=== PATIENT | female | born 1945 | race Caucasian/White ===

== ENCOUNTER 2023-04-03 08:19 | Inpatient (IN) ==
[2023-04-03] MEDS ORDERED: Ondansetron 4 mg VIAL 2 MG/ML 2 ml VIAL IV ONE ×2 (09:36→14:19)
[2023-04-03] MEDS ORDERED: Lactated Ringers 1000 ml BAG 1,000 ML IV ONE (09:36)
[2023-04-03] MEDS ORDERED: Morphine 4 MG/ML VIAL (1 ml) IV ONE ×2 (09:37→14:07)
[2023-04-03 11:29] LABS: ABS Eosinophils 0.1 10^3/uL (0.0-0.5); ABS Lymphocytes 0.9 10^3/uL (1.0-4.8); ABS Monocytes 0.5 10^3/uL (0.0-0.9); ABS Neutrophils 5.5 10^3/uL (1.5-7.6); ABS Nucleated RBC 0.01 10^3/ul; Eosinophil % 1.4 %; Hemoglobin 11.5 g/dL (11.5-14.3); Lymphocyte % 12.3 %; Mean Corpuscular Hemoglobin 29.8 pg (27-33); Mean Corpuscular Hgb Conc 33.8 g/dL (31-36); Mean Corpuscular Volume 88.2 fL (80-97); Mean Platelet Volume 7.6 fL (7.5-11.2); Nucleated Red Blood Cells % 0.1 /100 WBC (0.0-0.4); Platelet Count 177 10^3/uL (150-450); Red Blood Count 3.85 10^6/uL (3.63-4.92); Red Cell Distribution Width 15.3 % (12-17)
[2023-04-03 11:47] LABS: Albumin 4.2 g/dL (3.2-5.2); C Reactive Protein 17.5 mg/L (<8.01); Calcium 9.3 mg/dL (8.6-10.3); Creatinine, Serum 0.72 mg/dL (0.51-0.95); Globulin 4.4 g/dL (2-4); Potassium 4.4 mmol/L (3.5-5.0); Total Bilirubin 1.1 mg/dL (0.2-1.0); Total Protein 8.6 g/dL (6.4-8.9); eGFR CKD-EPI 86.6 (>60)
[2023-04-03] MEDS ORDERED: Iohexol 350 (CONTRAST) 500 ML MDV IV ONE (12:13)
[2023-04-03 12:53] LABS: Urine Appearance Clear; Urine Bilirubin Negative (Negative); Urine Blood Negative (Negative); Urine Color Yellow; Urine Glucose Negative (Negative); Urine Ketones Trace (Negative); Urine Nitrite Negative (Negative); Urine Protein Negative (Negative); Urine Urobilinogen Negative (Negative)
[2023-04-03] MEDS ORDERED: Ondansetron 4 mg VIAL 2 MG/ML 2 ml VIAL IV PRN (15:53)
[2023-04-03] MEDS ORDERED: hydrALAZINE 20 mg/ml 1 ML Vial IV IV SLOW PU PRN (15:55)
[2023-04-03] MEDS ORDERED: Lactated Ringers 1000 ml BAG 1,000 ML IV SCH (16:00)
[2023-04-03] MEDS ORDERED: cefTRIAXone 1 gm/50 mL D5W 1 GM/50 ML BAG IV ONE (16:02)
[2023-04-03] MEDS ORDERED: metroNIDAZOLE IV 500 MG/100ML 500 MG/100 ML BAG IVPB ONE (16:02)
[2023-04-03] MEDS: Morphine 2 MG/ML SYRINGE IV PRN ×2 (18:33→23:09)
[2023-04-03] MEDS: NS 0.9% 1000 ml BAG 1,000 ML IV SCH (20:41)
[2023-04-03] MEDS ORDERED: Acetaminophen IV 1 GM/100ML 1,000 MG/100 ML BAG IV PRN (21:34)
[2023-04-04] MEDS: Morphine 2 MG/ML SYRINGE IV PRN (01:58)
[2023-04-04] MEDS ORDERED: Lorazepam PYXIS KEY PRN (02:28)
[2023-04-04] MEDS ORDERED: LORazepam 2 mg VIAL 1 ml IV PUSH ONE (02:29)
[2023-04-04 05:36] LABS: ABS Lymphocytes 1.1 10^3/uL (1.0-4.8); ABS Neutrophils 8.4 10^3/uL (1.5-7.6); ABS Nucleated RBC 0.01 10^3/ul; Eosinophil % 0.1 %; Hematocrit 32.7 % (35-45); Mean Corpuscular Hemoglobin 29.8 pg (27-33); Mean Corpuscular Hgb Conc 33.7 g/dL (31-36); Mean Corpuscular Volume 88.6 fL (80-97); Mean Platelet Volume 7.7 fL (7.5-11.2); Nucleated Red Blood Cells % 0.1 /100 WBC (0.0-0.4); Platelet Count 154 10^3/uL (150-450); Red Blood Count 3.69 10^6/uL (3.63-4.92); Red Cell Distribution Width 15.1 % (12-17); White Blood Count 10.5 10^3/uL (3.8-11.8)
[2023-04-04 05:55] LABS: Albumin 3.3 g/dL (3.2-5.2); Albumin/Globulin Ratio 0.8 (1-3); C Reactive Protein 53.49 mg/L (<8.01); Calcium 8.4 mg/dL (8.6-10.3); Creatinine, Serum 0.76 mg/dL (0.51-0.95); Magnesium 1.6 mg/dL (1.9-2.7); Potassium 3.9 mmol/L (3.5-5.0); Total Bilirubin 0.9 mg/dL (0.2-1.0); Total Protein 7.3 g/dL (6.4-8.9); eGFR CKD-EPI 81.2 (>60)
[2023-04-04] MEDS: NS 0.9% 1000 ml BAG 1,000 ML IV SCH ×2 (07:55→18:11)
[2023-04-04] MEDS ORDERED: Magnesium Sulfate IV 3 GM in NS 0.9% 100 ml BAG 100 ML IVPB ONE (18:00)
[2023-04-04] MEDS: Carbidopa/Levodop 25/100 MG TAB PO SCH (20:10)
[2023-04-04] MEDS ORDERED: cefTRIAXone 1 gm/50 mL D5W 1 GM/50 ML BAG IV SCH (21:00)
[2023-04-05] MEDS: Morphine 2 MG/ML SYRINGE IV PRN (03:06)
[2023-04-05 06:01] LABS: ABS Eosinophils 0.2 10^3/uL (0.0-0.5); ABS Monocytes 0.6 10^3/uL (0.0-0.9); ABS Neutrophils 5.7 10^3/uL (1.5-7.6); Hematocrit 28.3 % (35-45); Hemoglobin 9.8 g/dL (11.5-14.3); Lymphocyte % 12.8 %; Mean Corpuscular Hemoglobin 30.2 pg (27-33); Mean Corpuscular Hgb Conc 34.5 g/dL (31-36); Mean Corpuscular Volume 87.5 fL (80-97); Mean Platelet Volume 7.9 fL (7.5-11.2); Platelet Count 141 10^3/uL (150-450); Red Blood Count 3.23 10^6/uL (3.63-4.92); White Blood Count 7.6 10^3/uL (3.8-11.8)
[2023-04-05 06:22] LABS: Albumin 2.9 g/dL (3.2-5.2); Albumin/Globulin Ratio 0.9 (1-3); Calcium 7.6 mg/dL (8.6-10.3); Creatinine, Serum 0.53 mg/dL (0.51-0.95); Globulin 3.4 g/dL (2-4); Potassium 3.4 mmol/L (3.5-5.0); Total Bilirubin 0.6 mg/dL (0.2-1.0); Total Protein 6.3 g/dL (6.4-8.9); eGFR CKD-EPI 95.8 (>60)
[2023-04-05] MEDS ORDERED: Potassium Chlor 20 meq TAB.ER PO ONE (08:45)
[2023-04-05] MEDS: Carbidopa/Levodop 25/100 MG TAB PO SCH ×2 (09:51→14:13)
[2023-04-05 14:00] VITALS: BP 134/66
[2023-04-05] MEDS ORDERED: cefTRIAXone 1 GM Q24H (ADVAN) IVPB SCH (21:00)
== END 2023-04-05 15:35 | disposition home or self-care (01) | DRG 389 ==
LOC: ED 08:19 → SUATTDRO 15:45 → EDHOLD 15:45 → SSU 20:21
PROVIDERS: ADMIT Internal Medicine Hematology & Oncology; ATTEND Internal Medicine